=== PATIENT | male | born 1955 | race Caucasian/White ===

== ENCOUNTER 2016-11-01 15:23 | Emergency (ER) | payer MEDICARE, OTHER ==
[~2016-11-01] VITALS: Ht 182.9 cm; Wt 125.5 kg
[~2016-11-01 15:23] MED LIST: ACET1TAB49 PO
[2016-11-01 15:44] VITALS: Ht 182.9 cm; Wt 125.5 kg
--- NOTE | 2016-11-01 18:48 | ERA ---
ER Documentation Chief Complaint Date/Time DATE: 11/01/16 TIME: 18:48 Chief Complaint SENT BY PMD FOR PALPITATIONS.DENIES PAIN.DENIES CARDIAC HISTORY HPI The patient is a 60-year-old male, presenting to the ER because of palpitation intermittently for the last 2 weeks after his left him. He denies any palpitation now; he denies similar symptoms previously, denies suicidal ideation , homicidal ideation, auditory visual hallucination. Denies any chest pain, dyspnea, abdominal pain, vomiting, dysuria, diarrhea. He does not smoke nor drink Past medical history: Diabetes mellitus Past surgical history: Hemorrhoidectomy ROS All systems reviewed and are negative except as per history of present illness. Medications Home Meds Reported Medications Atorvastatin Calcium* (Atorvastatin Calcium*) 20 Mg Tablet, 20 MG PO QHS, #30 TAB 11/01/16 Aspirin* (Aspirin* EC) 81 Mg Tablet.dr, 81 MG PO DAILY, TAB 11/01/16 Metformin* (Glucophage*) 500 Mg Tab, 500 MG PO WITH BREAKFAST DINNE, #30 TAB 11/01/16 Promethazine Hcl* (Phenergan* Liq) 6.25 Mg/5 Ml Syrup, 6.25 MG PO QHS, ML 11/01/16 Glipizide* (Glipizide*) 5 Mg Tablet, 5 MG PO DAILY, TAB 11/01/16 Discontinued Reported Medications Acetaminophen/Phenyltolx Cit (Asa Free Analgesic Tablet) 1 Tab Tablet, 81 MG PO DAILY 07/21/11 Allergies Allergies: Coded Allergies: No Known Allergy (Verified , 11/01/16) PMhx/Soc History of Surgery: No Anesthesia Reaction: No Hx Neurological Disorder: Yes (CEREBRAL PALSY) Hx Respiratory Disorders: No Hx Cardiac Disorders: No Hx Psychiatric Problems: No Hx Miscellaneous Medical Probl: Yes (MENTALLY CHALLENGE) Hx Alcohol Use: No Hx Substance Use: No Hx Tobacco Use: No Physical Exam Vitals Vital Signs Date Time Temp Pulse Resp B/P Pulse Ox O2 Delivery O2 Flow Rate FiO2 11/01/16 19:04 Nasal Cannula 11/01/16 18:50 98.2 79 18 137/88 97 Room Air 11/01/16 15:44 98.5 98 18 144/81 98 Physical Exam Const: No acute distress. Head: Atraumatic. Eyes: Normal Conjunctiva. ENT: Normal External Ears, Nose and Mouth. Neck: Full range of motion. No meningismus. Resp: Clear to auscultation bilaterally. Cardio: Regular rate and rhythm, no murmurs. Abd: Soft, non distended, normal bowel sounds, non tender. Skin: No petechiae or rashes. Back: No midline or flank tenderness. Ext: No cyanosis, or edema. Neur: Awake and alert. No focal deficit Psych: Normal Mood and Affect. Result Diagram: 11/01/16185711/01/161857 Results 24 hrs Laboratory Tests Test 11/01/16 18:58 White Blood Count 7.910^3/ul Red Blood Count 5.1610^6/ul Hemoglobin 16.1g/dl Hematocrit 46.9% Mean Corpuscular Volume 90.9fl Mean Corpuscular Hemoglobin 31.2pg Mean Corpuscular Hemoglobin Concent 34.3g/dl Red Cell Distribution Width 12.5% Platelet Count 25523^3/UL Mean Platelet Volume 9.7fl Neutrophils % 54.6% Lymphocytes % 34.6% Monocytes % 7.7% Eosinophils % 2.4% Basophils % 0.3% Nucleated Red Blood Cells % 0.0/100WBC Neutrophils # 4.310^3/ul Lymphocytes # 2.710^3/ul Monocytes # 0.610^3/ul Eosinophils # 0.210^3/ul Basophils # 0.010^3/ul Nucleated Red Blood Cells # 0.010^3/ul Prothrombin Time 13.2Sec Prothrombin Time Ratio 1.0 INR International Normalized Ratio 1.00 Activated Partial Thromboplast Time 28.0Sec Sodium Level 141mmol/L Potassium Level 4.3mmol/L Chloride Level 100mmol/L Carbon Dioxide Level 29mmol/L Anion Gap 16 Blood Urea Nitrogen 12mg/dl Creatinine 0.78mg/dl Glucose Level 129mg/dl Calcium Level 10.4mg/dl [facility] [id number] Radiology Main Line: [phone] DIAGNOSTIC IMAGING REPORT Patient: GIUSEPPE ECHOLS : 1955 Age: 60 Sex: M MR #: [id number] DOS: 11/01/161852 Ordering MD: GIUSEPPE ARITA MD Location: E/R Room/Bed: PROCEDURE: XR Chest. CLINICAL INDICATION: Chest Pain. TECHNIQUE: Single frontal view of the chest was obtained COMPARISON: None FINDINGS: The heart is enlarged with fullness in the superior mediastinum. This is likely exaggerated by the portable AP nature of the film. The lungs are clear. There is no pleural effusion or pneumothorax. IMPRESSION: 1. The heart is enlarged with fullness in the superior mediastinum. This is likely somewhat exaggerated by the portable AP nature of the film. 2. Otherwise, no significant abnormalities are identified. RPTAT:AAJJ Physician Ngoc Date Time Electronically viewed and signed by Danie Cook Physician on 11/01/2016 20: 01 MC/ CC: GIUSEPPE ARITA MD MEDICAL MAKING DECISION: The patient is a 60-year-old male, presenting with acute palpitation, most likely due to acute stress. The differential diagnoses considered include but are not limited to acute coronary syndrome, acute myocardial infarction, pericarditis, pulmonary embolism, aortic dissection, pneumonia, pleural effusion, pneumothorax, GERD, chest wall pain. Departure Diagnosis: Primary Impression: Palpitations Condition: Good Comments I discussed the findings with the patient. I advised the patient to follow-up with the primary physician in about 1-2 days, sooner if needed and return if any concern. The patient's blood pressure was elevated (>120/80) but appears stable without evidence of hypertension emergency or urgency. The patient was counseled about the risks of hypertension and urged to pursue outpatient monitoring and therapy within a week with their primary care physician. GIUSEPPE ARITA MD Nov 01, 2016 18:48
[2016-11-01 18:50] VITALS: TEMP 98.2
[2016-11-01 19:11] LABS: ADD SCAN DIFF NO; BASOPHILS % 0.3 % (0.0-2.0); EOSINOPHILS # 0.2 10^3/ul (0.0-0.5); EOSINOPHILS % 2.4 % (0.0-7.0); HEMATOCRIT 46.9 % (42.0-52.0); HEMOGLOBIN 16.1 g/dl (14.0-18.0); LYMPHOCYTES # 2.7 10^3/ul (0.8-2.9); LYMPHOCYTES % 34.6 % (15.0-51.0); MEAN CORPUSCULAR HEMOGLOBIN 31.2 pg (29.0-33.0); MEAN CORPUSCULAR HGB CONC 34.3 g/dl (32.0-37.0); MEAN CORPUSCULAR VOLUME 90.9 fl (82.0-101.0); MEAN PLATELET VOLUME 9.7 fl (7.4-10.4); MONOCYTE # 0.6 10^3/ul (0.3-0.9); MONOCYTES % 7.7 % (0.0-11.0); NEUTROPHIL # 4.3 10^3/ul (1.6-7.5); NEUTROPHILS % 54.6 % (39.0-77.0); PLATELET COUNT 221 10^3/UL (140-415); RED BLOOD COUNT 5.16 10^6/ul (4.70-6.10); RED CELL DISTRIBUTION WIDTH 12.5 % (11.5-14.5); WHITE BLOOD COUNT 7.9 10^3/ul (4.8-10.8)
[2016-11-01] MEDS ORDERED: GLIP5TAB13 PO (19:13)
[2016-11-01] MEDS ORDERED: PROM6.25 PO (19:15)
[2016-11-01] MEDS ORDERED: METF500T4 PO (19:18)
[2016-11-01] MEDS ORDERED: ASPI-664 PO (19:19)
[2016-11-01] MEDS ORDERED: ATOR20TA38 PO (19:20)
[2016-11-01 19:22] LABS: POTASSIUM 4.3 mmol/L (3.5-5.1); PROTIME 13.2 Sec (12.2-14.2)
[2016-11-01 19:24] LABS: CREATININE 0.78 mg/dl (0.61-1.24)
[2016-11-01 19:25] LABS: CALCIUM 10.4 mg/dl (8.4-10.2)
--- NOTE | 2016-11-01 20:02 | RADRPT ---
PROCEDURE: XR Chest. CLINICAL INDICATION: Chest Pain. TECHNIQUE: Single frontal view of the chest was obtained COMPARISON: None FINDINGS: The heart is enlarged with fullness in the superior mediastinum. This is likely exaggerated by the portable AP nature of the film. The lungs are clear. There is no pleural effusion or pneumothorax. IMPRESSION: 1. The heart is enlarged with fullness in the superior mediastinum. This is likely somewhat exagge rated by the portable AP nature of the film. 2. Otherwise, no significant abnormalities are identified. RPTAT:AAJJ Physician Ngoc Date Time Electronically viewed and signed by Danie Cook Physician on 11/01/2016 20:01 LION/
[2016-11-01 20:18] VITALS: BP 139/48; PULSE 80; RESP 18
== END 2016-11-01 20:18 | disposition home or self-care (01) ==
LOC: E/R 15:23
DX: R00.2 Palpitations (principal); E11.9 Type 2 diabetes mellitus without complications; R07.9 Chest pain, unspecified; Z79.84 Long term (current) use of oral hypoglycemic drugs; Z79.82 Long term (current) use of aspirin
CPT/HCPCS: 36415; 71010; 80048; 85025; 85610; 85730; 93005

== ENCOUNTER 2016-11-13 12:32 | Observation (INO) | payer MEDICARE, OTHER ==
[~2016-11-13] VITALS: Ht 185.4 cm; Wt 122.0 kg
[~2016-11-13 12:32] MED LIST changes: -ACET1TAB49 PO; +ASPI-664 PO; +ATOR20TA38 PO; +GLIP5TAB13 PO; +METF500T4 PO; +PROM6.25 PO
[2016-11-13] MEDS ORDERED: ASPIRIN 81 MG TAB PO STA (12:50)
[2016-11-13] MEDS ORDERED: NITROGLYCERIN 2% 1 GM OINT PKT TD STA (12:50)
[2016-11-13] MEDS ORDERED: NITROGLYCERIN (SL) 0.4 MG TAB SL PRN ×2 (13:00→19:30)
[2016-11-13 13:40] LABS: ADD SCAN DIFF NO
[2016-11-13 13:43] LABS: BASOPHILS % 0.3 % (0.0-2.0); EOSINOPHILS # 0.2 10^3/ul (0.0-0.5); EOSINOPHILS % 2.8 % (0.0-7.0); HEMATOCRIT 42.4 % (42.0-52.0); HEMOGLOBIN 14.6 g/dl (14.0-18.0); LYMPHOCYTES % 33.4 % (15.0-51.0); MEAN CORPUSCULAR HEMOGLOBIN 30.9 pg (29.0-33.0); MEAN CORPUSCULAR HGB CONC 34.4 g/dl (32.0-37.0); MEAN CORPUSCULAR VOLUME 89.6 fl (82.0-101.0); MEAN PLATELET VOLUME 10.2 fl (7.4-10.4); MONOCYTE # 0.6 10^3/ul (0.3-0.9); MONOCYTES % 9.8 % (0.0-11.0); NEUTROPHIL # 3.2 10^3/ul (1.6-7.5); NEUTROPHILS % 53.5 % (39.0-77.0); PLATELET COUNT 203 10^3/UL (140-415); RED BLOOD COUNT 4.73 10^6/ul (4.70-6.10); RED CELL DISTRIBUTION WIDTH 12.4 % (11.5-14.5); WHITE BLOOD COUNT 6.1 10^3/ul (4.8-10.8)
[2016-11-13 13:53] LABS: CHLORIDE 103 mmol/L (97-110)
[2016-11-13 13:54] LABS: POTASSIUM 3.9 mmol/L (3.5-5.1); SODIUM 143 mmol/L (135-144)
[2016-11-13 13:55] LABS: INR 1.08; PARTIAL THROMBOPLASTIN TIME 28.6 Sec (25.0-35.0); PT RATIO 1.1
[2016-11-13 13:57] LABS: ANION GAP 15 (8-16); BLOOD UREA NITROGEN 14 mg/dl (7-20); CALCIUM 9.8 mg/dl (8.4-10.2); CARBON DIOXIDE 29 mmol/L (21-31); GLUCOSE 109 mg/dl (70-220)
[2016-11-13 14:33] LABS: TROPONIN-I < 0.012 ng/ml (0.00-0.12)
--- NOTE | 2016-11-13 14:33 | RADRPT ---
PROCEDURE: XR Chest. CLINICAL INDICATION: Chest pain. TECHNIQUE: Single frontal chest x-ray. COMPARISON: 11/01/2016 FINDINGS: The lungs are clear. No focal opacification is seen. The cardiomediastinal silhouette is unremarka ble. The osseous structures are unremarkable. IMPRESSION: 1. There is no acute cardiopulmonary process. 2. Stable appearances over time. RPTAT: HMJB .Lucian Mayorga MD, MD Date Time Electronically viewed and signed by .Lucian Mayorga MD, on 11/13/2016 14:33 .B/
[2016-11-13] MEDS ORDERED: ONDANSETRON 4 MG INJ IV PRN ×2 (16:00→19:30)
[2016-11-13] MEDS ORDERED: ACETAMINOPHEN 325 MG TAB PO PRN ×2 (16:00→19:30)
--- NOTE | 2016-11-13 16:33 | ERA ---
ER Documentation Chief Complaint Date/Time DATE: 11/13/16 TIME: 16:29 Chief Complaint chest pain radiating to left shoulder x 3 days HPI Patient is a 60-year-old male with hypertension and diabetes who presents with chest pain. The symptoms started 2 days ago. The chest pain is left-sided. It comes and goes. It lasts 2 hours when it comes. He has had no treatment as of yet. There is no radiation. He was seen on November 01 for palpitations but was discharged that day. Upon review of old medical records this is the patient 's fifth visit to the ER since 2006. His primary doctor is Dr. Christal Sanders. ROS All systems reviewed and are negative except as per history of present illness. Medications Home Meds Reported Medications Atorvastatin Calcium* (Atorvastatin Calcium*) 20 Mg Tablet, 20 MG PO QHS, #30 TAB 11/01/16 Aspirin* (Aspirin* EC) 81 Mg Tablet.dr, 81 MG PO DAILY, TAB 11/01/16 Metformin* (Glucophage*) 500 Mg Tab, 500 MG PO WITH BREAKFAST DINNE, #30 TAB 11/01/16 Promethazine Hcl* (Phenergan* Liq) 6.25 Mg/5 Ml Syrup, 6.25 MG PO QHS, ML 11/01/16 Glipizide* (Glipizide*) 5 Mg Tablet, 5 MG PO DAILY, TAB 11/01/16 Allergies Allergies: Coded Allergies: No Known Allergy (Verified , 11/01/16) PMhx/Soc History of Surgery: Yes Anesthesia Reaction: No Hx Neurological Disorder: Yes (CEREBRAL PALSY) Hx Respiratory Disorders: No Hx Cardiac Disorders: No Hx Psychiatric Problems: No Hx Miscellaneous Medical Probl: Yes (MENTALLY CHALLENGE, DM) Hx Alcohol Use: No Hx Substance Use: No Hx Tobacco Use: No Smoking Status: Never smoker FmHx Family History: coronary disease Physical Exam Vitals Vital Signs Date Time Temp Pulse Resp B/P Pulse Ox O2 Delivery O2 Flow Rate FiO2 11/13/16 16:55 79 17 110/74 98 Room Air 11/13/16 14:43 87 17 114/83 99 Room Air 11/13/16 13:05 Nasal Cannula 2 11/13/16 12:36 98.2 89 18 129/72 98 Physical Exam Const: No acute distress Head: Atraumatic Eyes: Normal Conjunctiva ENT: Normal External Ears, Nose and Mouth. Neck: Full range of motion..~ No meningismus. Resp: Clear to auscultation bilaterally Cardio: Regular rate and rhythm, no murmurs Abd: Soft, non tender, non distended. Normal bowel sounds Skin: No petechiae or rashes Back: No midline or flank tenderness Ext: No cyanosis, or edema Neur: Awake and alert Psych: Normal Mood and Affect Result Diagram: 11/13/16 1324 11/13/16 1324 Results 24 hrs Laboratory Tests Test 11/13/16 13:24 White Blood Count 6.110^3/ul Red Blood Count 4.7310^6/ul Hemoglobin 14.6g/dl Hematocrit 42.4% Mean Corpuscular Volume 89.6fl Mean Corpuscular Hemoglobin 30.9pg Mean Corpuscular Hemoglobin Concent 34.4g/dl Red Cell Distribution Width 12.4% Platelet Count 48506^3/UL Mean Platelet Volume 10.2fl Neutrophils % 53.5% Lymphocytes % 33.4% Monocytes % 9.8% Eosinophils % 2.8% Basophils % 0.3% Nucleated Red Blood Cells % 0.0/100WBC Neutrophils # 3.210^3/ul Lymphocytes # 2.010^3/ul Monocytes # 0.610^3/ul Eosinophils # 0.210^3/ul Basophils # 0.010^3/ul Nucleated Red Blood Cells # 0.010^3/ul Prothrombin Time 14.0Sec Prothrombin Time Ratio 1.1 INR International Normalized Ratio 1.08 Activated Partial Thromboplast Time 28.6Sec Sodium Level 143mmol/L Potassium Level 3.9mmol/L Chloride Level 103mmol/L Carbon Dioxide Level 29mmol/L Anion Gap 15 Blood Urea Nitrogen 14mg/dl Creatinine 0.80mg/dl Glucose Level 109mg/dl Calcium Level 9.8mg/dl Troponin I < 0.012ng/ml Current Medications Medications (Trade) Dose Ordered Sig/Lashay Route PRN Reason Start Time Stop Time Status Last Admin Dose Admin Aspirin (Aspirin) 162 mg ONCE STAT PO 11/13/16 12:50 11/13/16 12:51 DC 11/13/16 13:37 Nitroglycerin (Nitroglycerin 2% Oint) 1 inch ONCE STAT TD 11/13/16 12:50 11/13/16 12:51 DC 11/13/16 13:38 Nitroglycerin (Nitroglycerin (Sl Tab) 0.4 Mg) 1 tab Q5M UP TO 3 DOSES PRN SL CHEST PAIN 11/13/16 13:00 Ondansetron HCl (Zofran Inj) 4 mg ER BRIDGE PRN IV NAUSEA AND/OR VOMITING 11/13/16 16:00 11/14/16 15:59 Acetaminophen (Tylenol Tab) 650 mg ER BRIDGE PRN PO MILD PAIN/FEVER 11/13/16 16:00 11/14/16 15:59 Procedures/MDM EKG read by me: Rate/Rhythm: Regular rate and rhythm at a rate of 88 Intervals: Normal Impression: No evidence of ischemia or arrhythmia Chest x-ray negative per radiology. Patient is a 60-year-old male with hypertension and diabetes who presents with chest pain. This chest pain is concerning for acute coronary syndrome. At this point I doubt pneumonia, pneumothorax, pulmonary embolism, or aortic dissection. The patient will need admission to a telemetry bed for further evaluation for the cause of his chest pain. Dr. Christal Sanders is the patient's primary doctor and I spoke with Dr. Tejada who is covering for her today. The patient will be admitted to a telemetry bed. Patient was given aspirin nitroglycerin empirically. Departure Diagnosis: Primary Impression: Chest pain Qualified Code: R07.9 - Chest pain, unspecified type Condition: MAI Mitchell MD Nov 13, 2016 16:33
[2016-11-13 18:18] VITALS: PULSE 74
[2016-11-13 18:31] VITALS: Ht 185.4 cm; Wt 122.0 kg
[2016-11-13 18:36] VITALS: BP 111/67; PULSE 83; RESP 18
[2016-11-13 19:28] VITALS: BP 116/60; RESP 18
[2016-11-13] MEDS ORDERED: ZOLPIDEM 5 MG TAB PO PRN (19:30)
[2016-11-13] MEDS ORDERED: PROMETHAZINE (1.25 MG/ML) 5 ML CUP PO PRN (19:30)
[2016-11-13 19:35] LABS: CREATINE KINASE 642 IU/L (23-200)
[2016-11-13 19:46] LABS: CK-MB 7.62 ng/ml (0.0-2.4)
[2016-11-13 19:50] LABS: TROPONIN-I < 0.012 ng/ml (0.00-0.12)
[2016-11-13 20:06] VITALS: PULSE 88
[2016-11-13] MEDS: ATORVASTATIN 20 MG TAB PO SCH (20:15)
[2016-11-14] VITALS (12 sets, daily range): BP systolic 95–142; BP diastolic 55–80; PULSE 56–101; RESP 18
[2016-11-14 01:17] LABS: CREATINE KINASE 516 IU/L (23-200)
[2016-11-14 01:34] LABS: CK-MB 6.27 ng/ml (0.0-2.4); TROPONIN-I < 0.012 ng/ml (0.00-0.12)
[2016-11-14] MEDS ORDERED: glipiZIDE 5 MG TAB PO SCH (07:25)
[2016-11-14 07:34] LABS: ADD SCAN DIFF NO
[2016-11-14 07:37] LABS: BASOPHILS % 0.5 % (0.0-2.0); EOSINOPHILS # 0.2 10^3/ul (0.0-0.5); EOSINOPHILS % 3.9 % (0.0-7.0); HEMATOCRIT 41.2 % (42.0-52.0); HEMOGLOBIN 13.8 g/dl (14.0-18.0); LYMPHOCYTES # 1.4 10^3/ul (0.8-2.9); LYMPHOCYTES % 31.7 % (15.0-51.0); MEAN CORPUSCULAR HEMOGLOBIN 30.5 pg (29.0-33.0); MEAN CORPUSCULAR HGB CONC 33.5 g/dl (32.0-37.0); MEAN CORPUSCULAR VOLUME 90.9 fl (82.0-101.0); MEAN PLATELET VOLUME 10.3 fl (7.4-10.4); MONOCYTE # 0.4 10^3/ul (0.3-0.9); MONOCYTES % 9.3 % (0.0-11.0); NEUTROPHIL # 2.4 10^3/ul (1.6-7.5); NEUTROPHILS % 54.4 % (39.0-77.0); PLATELET COUNT 165 10^3/UL (140-415); RED BLOOD COUNT 4.53 10^6/ul (4.70-6.10); WHITE BLOOD COUNT 4.3 10^3/ul (4.8-10.8)
[2016-11-14] MEDS: INSULIN ASPART [NOVOLOG] 3 ML PEN SC SCH ×4 (07:55→21:00)
[2016-11-14] MEDS: metFORMIN 500 MG TAB PO SCH ×2 (07:56→17:45)
[2016-11-14] MEDS ORDERED: GLUCOSE GEL 15 GRAM TUBE PO PRN ×2 (08:00)
[2016-11-14] MEDS ORDERED: GLUCOSE GEL 15 GRAM TUBE BUCCAL PRN (08:00)
[2016-11-14] MEDS ORDERED: DEXTROSE 50% 50 ML SYRINGE IV PRN ×2 (08:00)
[2016-11-14] MEDS ORDERED: GLUCAGON 1 MG INJ IM PRN (08:00)
[2016-11-14 08:12] LABS: ALBUMIN 3.7 g/dl (3.3-4.9); ALBUMIN/GLOBULIN RATIO 1.27; BILIRUBIN,INDIRECT 0.6 mg/dl (0-1.1); BILIRUBIN,TOTAL 0.6 mg/dl (0.2-1.3); CALCIUM 9.6 mg/dl (8.4-10.2); CREATININE 0.71 mg/dl (0.61-1.24); TOTAL PROTEIN 6.6 g/dl (6.1-8.1)
[2016-11-14] MEDS: ASPIRIN 81 MG TAB PO SCH (09:43)
[2016-11-14] MEDS ORDERED: KETOROLAC 30 MG INJ IV STA (18:20)
[2016-11-14] MEDS: ATORVASTATIN 20 MG TAB PO SCH (21:06)
[2016-11-14] MEDS: ALPRAZOLAM 0.5 MG TAB PO SCH (21:06)
--- NOTE | 2016-11-14 22:36 | HP ---
DATE OF ADMISSION: 11/13/2016 CHIEF COMPLAINT: Chest pain. HISTORY OF PRESENT ILLNESS: This 60-year-old male with mild mental developmental delay, m ental retardation has been going through a lot of stress with his newly and and her mot her. The patient has been having intermittent shortness of breath and palpitations, but presents in the emergency room with acute onset of chest pain on and off for 2 days prior to admission. He den ied any shortness of breath, diaphoresis, nausea, or vomiting. He does have mild unassociated palpi tations. The pain does radiate to the left shoulder. PAST MEDICAL HISTORY: 1. Diabetes mellitus. 2. Cerebral palsy. 3. Mild mental retardation. 4. Chronic myositis. ALLERGIES: NKDA. MEDICATIONS: 1. Metformin 500 mg p.o. every day. 2. Glipizide 5 mg p.o. every day. 3. Atorvastatin 20 mg p.o. at bedtime. 4. Aspirin 81 mg p.o. every day. SOCIAL HISTORY: The patient does not smoke, does not drink alcohol. He just got to another mentally challenged patient about a month ago, but the patient's mom just took his away and e patient has been having severe distress since then. He also has lost his main social support gabrielle use the [id number] also insisted that he fires the attendant who has been taking care of him. Ilan shahid did not want him to go to the [facility] where he was getting guidance. FAMILY HISTORY: Notable for heart disease. PHYSICAL EXAMINATION: GENERAL: Well-developed, well-nourished male complaining of left-sided chest pain. VITAL SIGNS: Temperature 98.6, blood pressure 134/80, pulse of 104, respiration rate 18, O2 saturat ion 96%. HEENT: Pupils equally round, reactive to light. Oropharynx clear. LUNGS: Clear to auscultation. CARDIAC: Regular rate and rhythm. Normal S1, S2. There is marked left parasternal tenderness jc g the costochondral joints. ABDOMEN: Active bowel sounds, soft, nondistended, nontender. EXTREMITIES: No clubbing, cyanosis, or edema. LABORATORY DATA: WBC 4.3, hemoglobin 13.8, hematocrit 41.2, platelet count is 165,000. Sodium 141, potassium 4.0, chloride 109, carbon dioxide 25, BUN 14, creatinine 0.7. The patient's serial tropo nins have been less than 0.012. His creatinine kinase has been elevated between 500 and 650. His C PK-MB has been elevated at 6.27 and 7.62, but not in the range indicative of acute myocardial infarc tion. The patient's chest x-ray shows no acute pulmonary process. EKG shows normal sinus rhythm, n o acute ST or T-wave changes. IMPRESSION: 1. Chest pain. Most likely due to costochondritis from acute stress and hyperventilation. Will st art patient on anti-inflammatory. Check a 2D echo since his CPK enzymes have been consistently elev ated. Although with a history of myositis, this unlikely to be caused by myocardial infarction. 2. Acute stress reaction. The patient was started on Paxil as an outpatient, but I am not sure radha t he filled his prescription. I will start him on an SSRI and some Xanax to help stabilize his tach ycardia as well as depression. Dictated By: APOLINAR SNYDER MD DP/NTS Conf#: [id number] DID#: [id number] CC: MYRA RICHARD MD;*EndCC*
[2016-11-15] VITALS (10 sets, daily range): BP systolic 109–131; BP diastolic 67–81; PULSE 59–77; RESP 17–20
[2016-11-15] MEDS ORDERED: ACCU-CHEK XX SCH (02:00)
[2016-11-15] MEDS: ALPRAZOLAM 0.5 MG TAB PO SCH (08:21)
[2016-11-15] MEDS: metFORMIN 500 MG TAB PO SCH ×2 (08:21→17:32)
[2016-11-15] MEDS: ASPIRIN 81 MG TAB PO SCH (08:21)
[2016-11-15] MEDS: INSULIN ASPART [NOVOLOG] 3 ML PEN SC SCH ×3 (08:27→17:34)
[2016-11-15] MEDS ORDERED: MELOXICAM 15 MG TAB PO SCH (09:00)
[2016-11-15] MEDS ORDERED: FLUOXETINE 20 MG CAP PO SCH (09:00)
--- NOTE | 2016-11-16 04:07 | DS ---
DATE OF ADMISSION: 11/13/2016 DATE OF DISCHARGE: 11/15/2016 DISCHARGE DIAGNOSES: 1. Chest pain. 2. Costochondritis. 3. Reactive depression. 4. Cerebral palsy. 5. Mental retardation. 6. Idiopathic myositis. HOSPITAL COURSE: This 60-year-old male who is undergoing relationship difficulty with his newly was admitted for chest pain on 11/13/2016. Although patient's EKG was normal and his troponins show persistently low levels at less than 0.01, his CPK was elevated at 642 and 516 s erially with the MB fraction at 7.62 and 6.27. The patient does have a history of myositis to expla in his elevated CPK and once we started him on Meloxicam, his anterior chest wall pain resolved. Th e patient also complains of severe depression due to his relationship problems, but on the day of jessie, he felt much better partially due to the Fluoxetine that was started but also mostly due to the fact that his estranged called him and talked to him. The patient had a 2D echocardiogram done in the hospital, the result of which is pending at this time. The patient was noted by all the nursing staff to be severely depressed on admission. We had a geriatric social worker consult who referred h im to outpatient mental health clinic for followup. DISPOSITION: The patient is discharged to home in good condition. DISCHARGE MEDICATIONS: Include: 1. Metformin. 2. Paroxetine. 3. Glipizide. 4. Aspirin. 5. Atorvastatin. FOLLOWUP: The patient will follow up with Dr. Apolinar Sanders within 1 week. He also will attend the [facility] for psychotherapy counseling. Dictated By: APOLINAR SANDERS MD DP/ANABELLA Conf#: [id number] DID#: [id number]
--- NOTE | 2016-11-16 14:25 | RADRPT ---
Echocardiogram Report Patient Name: EL ECHOLS Gender: Male Date: 1955 Study Date: 15-Nov-2016 Concrete Pavement Installer: Lance Bonds [facility] Location: [id number] Ref. Physician: APOLINAR SNYDER Quality: Adequate Procedures: Transthoracic echocardiogram with complete 2D, M-Mode, and doppler examination. Indications: elevated ckmb. Chest Pain. 2D/M Mode Doppler Measurement Value Normal Ranges Measurement Value Normal Ranges LVIDd 2D 6.0 3.5 - 5.6 cm AV Peak Dev 1.3 m/sec LVIDs 2D 3.4 2.1 - 4.1 cm AV Peak PG 6.8 mmHg LVPWd 2D 0.9 0.6 - 1.1 cm AI Peak PG 53.3 mmHg IVSd 2D 1.0 0.6 - 1.1 cm AI Peak Dev 3.6 m/sec AoR Diam 2D 3.5 2.0 - 3.7 cm AI PHT 526.3 msec EDV 2D 182.4 cm3 LVOT Peak Dev 0.8 m/sec ESV 2D 40.2 cm3 LVOT Peak PG 2.8 mmHg LA Dimen 2D 3.8 2.3 - 4.0 cm MV E Peak Dev 0.6 m/sec MV A Peak Dev 0.6 m/sec MV E/A 1.1 MV Decel Time 163 msec MV Decel Barrow 4 MV E/A 1.1 TR Peak Dev 2.4 m/sec TR Peak PG 23.5 mmHg RVSP 27.0 mmHg Findings Left Ventricle: Normal left ventricular cavity size. Normal left ventricular wall thickness. Mild left ventricular systolic dysfunction. Ejection fraction is visually estimated at 45 %. Right Ventricle: Normal right ventricular size. Normal right ventricular systolic function. Left Atrium: The left atrium is normal in size. Right Atrium: The right atrium is normal in size. Mitral Valve: Normal appearance and function of the mitral valve with trace physiologic regurgitation. Aortic Valve: No hemodynamically significant aortic stenosis by doppler. Aortic cusps appear mildly calcified. Mild aortic valve regurgitation. Tricuspid Valve: Normal appearance and function of the tricuspid valve with trace physiologic regurgitation. Estimated peak PA systolic pressure 27 mmHg. Pulmonic Valve: Pulmonic valve not well visualized. Pericardium: Normal pericardium with no significant pericardial effusion. Aorta: Normal aortic root. IVC: Normal size and normal respiratory collapse consistent with normal right atrial pressure. Conclusions 1.Normal left ventricular cavity size. Normal left ventricular wall thickness. Mild left ventricular systolic dysfunction. Ejection fraction is visually estimated at 45 %. 2.Normal right ventricular size. Normal right ventricular systolic function. 3.The left atrium is normal in size. 4.The right atrium is normal in size. 5.No hemodynamically significant aortic stenosis by doppler. Aortic cusps appear mildly calcified. Mild aortic valve regurgitation. 6.No significant valvular stenosis or regurgitation seen of remaining visualized valves. 7.Normal pericardium with no significant pericardial effusion. Electronically Signed By: El Fajardo 16-Nov-2016 14:24:14 -0700 Patient Name: EL ECHOLS Study Date: 15-Nov-2016 [id number]
== END 2016-11-15 20:30 | disposition home or self-care (01) ==
LOC: E/R 12:32 → TEL 15:40
PROVIDERS: ADMIT Internal Medicine; ATTEND Internal Medicine
DX: M94.0 Chondrocostal junction syndrome [Tietze] (principal); F32.9 Major depressive disorder, single episode, unspecified; G80.9 Cerebral palsy, unspecified; F79 Unspecified intellectual disabilities; M60.80 Other myositis, unspecified site
CPT/HCPCS: 36415; 71010; 80048; 80053; 82550; 82553; 82962; 84484; 85025; 85610; 85730; 93005; 93306; 96372; 96374; 99285; G0378; J1815; J1885

== ENCOUNTER 2018-11-07 13:31 | Emergency (ER) | payer MEDICARE, OTHER ==
[~2018-11-07] VITALS: Wt 100.0 kg
[~2018-11-07 13:31] MED LIST changes: -ASPI-664 PO; +ASPI-817 PO; +METF-849 PO; -METF500T4 PO; -PROM6.25 PO; +PROM6.256 PO
[2018-11-07] MEDS ORDERED: ASPIRIN 325 MG TAB PO STA (13:33)
--- NOTE | 2018-11-07 13:38 | ERD ---
ER Documentation Chief Complaint Chief Complaint palpitations and chest pain and possible syncope during argument. HPI 62-year-old gentleman who has a history of diabetes who presents to the emergency room with palpitations, chest pain, possible syncope during verbal altercation. The patient appeared to have been an argument with someone around his home. He states that 911 was called by his friend because the patient started to describe palpitations and may have passed out. He did describe some mild sharp chest pain was nonpleuritic and is now alleviated. Patient denies cardiac history. No fevers or chills. Otherwise the patient has no complaints currently. ROS All systems reviewed and are negative except as per history of present illness. Medications Home Meds Reported Medications Paroxetine Hcl* (Paroxetine*) 30 Mg Tablet, 30 MG PO HS, TAB 11/07/18 Sitagliptin* (Januvia*) 100 Mg Tablet, 100 MG PO DAILY, #30 TAB 11/07/18 Metformin Hcl* (Metformin Hcl*) 500 Mg Tablet, 1000 MG PO WITH BREAKFAST DINNE, #60 TAB 11/07/18 Glimepiride* (Glimepiride*) 4 Mg Tablet, 4 MG PO WITH BREAKFAST DINNE, TAB 11/07/18 Atorvastatin* (Atorvastatin*) 40 Mg Tablet, 40 MG PO QHS, #30 TAB 11/07/18 Aspirin* (Aspirin* EC) 81 Mg Tablet.dr, 81 MG PO DAILY, TAB 11/07/18 Discontinued Reported Medications Atorvastatin Calcium* (Atorvastatin Calcium*) 20 Mg Tablet, 20 MG PO QHS, #30 TAB 11/01/16 Aspirin* (Aspirin* EC) 81 Mg Tablet.dr, 81 MG PO DAILY, TAB 11/01/16 Metformin* (Glucophage*) 500 Mg Tab, 500 MG PO WITH BREAKFAST DINNE, #30 TAB 11/01/16 Promethazine Hcl* (Phenergan* Liq) 6.25 Mg/5 Ml Syrup, 6.25 MG PO QHS, ML 11/01/16 Glipizide* (Glipizide*) 5 Mg Tablet, 5 MG PO DAILY, TAB 11/01/16 Allergies Allergies: Coded Allergies: No Known Allergy (Verified , 11/07/18) PMhx/Soc History of Surgery: No Anesthesia Reaction: No Hx Neurological Disorder: Yes (Cerebral palsy) Hx Respiratory Disorders: No Hx Cardiac Disorders: No Hx Psychiatric Problems: No Hx Alcohol Use: No Hx Substance Use: No Hx Tobacco Use: No FmHx Family History: No diabetes Physical Exam Vitals Vital Signs Date Temp Pulse Resp B/P (MAP) Pulse Ox O2 O2 Flow FiO2 Time Delivery Rate 11/07/18 97 16 133/88 100 Room Air 15:20 (103) 11/07/18 97.8 89 18 139/78 99 14:05 (98) Physical Exam General: Well developed, well nourished, no acute distress Head: Normocephalic, atraumatic. Eyes: Pupils equally reactive, EOM intact ENT: Moist mucous membranes Neck: Supple, no lymphadenopathy Respiratory: Lungs clear bilaterally, no distress Cardiovascular: RRR, no murmurs, rubs, or gallops Abdominal: Soft, non-tender, non-distended, no peritoneal signs : Deferred MSK: No edema, no unilateral swelling, 5/5 strength Neurologic: Alert and oriented, moving all extremities, normal speech, no focal weakness, no cerebellar signs Skin: No rash Psych: Normal mood Result Diagram: 11/07/18 1404 11/07/18 1404 Results 24 hrs Laboratory Tests Test 11/07/18 13:34 11/07/18 14:04 11/07/18 14:05 11/07/18 15:26 Blood Gas Blood venous Specimen Source Arterial Blood 11/07/2018 2:06:2 Date Drawn 4 PM Arterial Blood VENOUS LINE Gas Puncture Site Scar Test N/A Venous Blood pH 7.376 Venous Blood 48.4 mmHG pCO2 (Temp Corrected) Venous Blood pO2 24.2 mmHG (Temp Corrected) Venous Blood 27.7 mmol/L HCO3 Venous Blood 41.3 mmHG Oxygen Saturation Venous Blood 1.7 mmol/L Base Excess Venous Blood 16.0 g/dl Total Hemoglobin Venous Blood 41.0 % Oxyhemoglobin Venous Blood 0.1 % Methemoglobin Blood Gas A-a O2 67.6 mmHg Differential Carboxyhemoglobi 0.6 % n Blood Gas 37.0 C Temperature Blood Gas ROOM AIR Modality FiO2 21.0 % Blood Gas DR MALHOTRA Critical Value Read Back Blood Gas TM Notified Whom Blood Gas 11/07/2018 2:17:1 Notified Time 5 PM White Blood 6.9 10^3/ul Count Red Blood Count 4.94 10^6/ul Hemoglobin 15.0 g/dl Hematocrit 44.1 % Mean Corpuscular 89.3 fl Volume Mean Corpuscular 30.4 pg Hemoglobin Mean Corpuscular 34.0 g/dl Hemoglobin Maris nt Red Cell 12.9 % Distribution Width Platelet Count 204 10^3/UL Mean Platelet 10.2 fl Volume Immature 0.400 % Granulocytes % Neutrophils % 55.8 % Lymphocytes % 33.3 % Monocytes % 7.3 % Eosinophils % 2.6 % Basophils % 0.6 % Nucleated Red 0.0 /100WBC Blood Cells % Immature 0.030 10^3/ul Granulocytes # Neutrophils # 3.8 10^3/ul Lymphocytes # 2.3 10^3/ul Monocytes # 0.5 10^3/ul Eosinophils # 0.2 10^3/ul Basophils # 0.0 10^3/ul Nucleated Red 0.0 10^3/ul Blood Cells # Sodium Level 140 mmol/L Potassium Level 4.8 mmol/L Chloride Level 101 mmol/L Carbon Dioxide 29 mmol/L Level Anion Gap 10 Blood Urea 18 mg/dl Nitrogen Creatinine 0.86 mg/dl Est Glomerular > 60 mL/min Filtrat Rate mL/min Glucose Level 470 mg/dl Calcium Level 10.2 mg/dl Troponin I < 0.012 ng/ml Phosphorus Level 3.9 mg/dl Magnesium Level 1.5 mg/dl Bedside Glucose 326 mg/dL Current Medications Medications Dose Sig/Lashay Start Time Status Last (Trade) Ordered Route PRN Stop Time Admin Dose Reason Admin Aspirin 325 mg ONCE STAT 11/07/18 DC 11/07/18 (Aspirin) PO 13:33 14:55 11/07/18 13:34 Sodium 1,000 ml @ ONCE ONCE 11/07/18 DC 11/07/18 Chloride 1,000 mls/hr IV 14:00 14:15 11/07/18 14:59 Magnesium 100 ml @ ONCE ONCE 11/07/18 11/07/18 Sulfate/ 100 mls/hr IVPB 15:30 15:30 Dextrose 11/07/18 16:29 Insulin 5 unit ONCE ONCE 11/07/18 DC Human SC 15:30 Lispro 11/07/18 15:30 (Humalog) Diagnostic 1 ea 2 HRS AFTER 11/07/18 Test (Pha) HUMALOG ONCE 17:30 (Accu-Chek) XX 11/07/18 17:31 Procedures/MDM EKG, MONITORS, & DIAGNOSTIC IMAGING: EKG: I reviewed and interpreted a 12-lead EKG. Rhythm: Normal sinus rhythm ST Changes: No contiguous ST segment elevations T waves: No contiguous T wave inversions Impression: No evidence of acute cardiac ischemia Repeat EKG: Patient refused Chest x-ray: I reviewed and interpreted a 1 view of the chest Mediastinum: No enlargement Cardiac silhouette: No cardiomegaly Airspace: Clear lung berry bilaterally without evidence of pneumothorax Bones: No evidence of fracture PROCEDURES: None LAB INTERPRETATION: * Hypomagnesemia * Hyperglycemia without evidence of diabetic ketoacidosis * Negative troponin MEDICAL DECISION MAKING: The patient's history, physical exam and clinical presentation is very likely consistent with stress response, palpitations and near syncope versus syncope related to argument. However given the patient's age and risk factors I cannot rule out cardiac etiology. Low concern for dissection or pulmonary embolism. Patient is asymptomatic currently. Accu-Chek in the field was greater than 400. DKA screening initiated. Based on the patient's clinical exam and history and risk factors, I have a much lower clinical concern for pulmonary embolism, acute aortic dissection, pneumothorax, pneumonia, cardiac tamponade HEART Score: 2 MACE Rate: < 1.7% Shared Decision Making: We had a conversation regarding risk stratification, MACE rate, and the risks, benefits, alternatives of disposition planning options. Disposition planning: Patient is refusing admission and serial troponins in the emergency room setting. He has capacity and informed decision making. ER COURSE: * Aspirin provided. Magnesium repleted via IV medication. * Glucose trended down, no indication for aggressive treatment at this time, no evidence of diabetic ketoacidosis * Chest pain remains absent. * Patient states that he would like to be discharged. He does not want serial enzymes or admission. Understands the risks including missed AL. He understands my recommendation for admission. CONSULTATION: None DISPOSITION PLAN: The patient does not have an identifiable emergent medical condition that warrants inpatient hospitalization at this time. The patient is deemed safe for discharge with outpatient follow-up. We discussed follow up with the patient's primary care doctor within 24 to 48 hours as needed. We also discussed return to the emergency room for worsening symptoms or worsening condition. Outpatient referral: None required Discharge Medications: None required Departure Diagnosis: Primary Impression: Chest pain Chest pain type: unspecified Qualified Codes: R07.9 - Chest pain, unspecified Additional Impressions: Anxiety reaction Hyperglycemia Hypomagnesemia Palpitations Condition: Stable DILEEP MALHOTRA MD Nov 07, 2018 13:38
[2018-11-07] MEDS ORDERED: SOD CHLORIDE 0.9% 1,000 ML IV ONE (14:00)
[2018-11-07 15:20] VITALS: BP 133/88; PULSE 97; RESP 16
[2018-11-07] MEDS ORDERED: INSULIN LISPRO 100 UNIT/ML VIAL SC ONE (15:30)
[2018-11-07] MEDS ORDERED: MAGNESIUM SULFATE 1 GM/D5W 100 ML IVPB ONE (15:30)
[2018-11-07] MEDS ORDERED: ASPI-817 PO (15:33)
[2018-11-07] MEDS ORDERED: ATOR40TA68 PO (15:34)
[2018-11-07] MEDS ORDERED: GLIM4TAB PO (15:34)
[2018-11-07] MEDS ORDERED: SITA100T11 PO (15:36)
[2018-11-07] MEDS ORDERED: METF500T24 PO (15:36)
[2018-11-07] MEDS ORDERED: PARO30TA68 PO (15:37)
[2018-11-07] MEDS ORDERED: ACCU-CHEK XX ONE (17:30)
== END 2018-11-07 15:57 | disposition home or self-care (01) ==
LOC: E/R 13:31
DX: R07.9 Chest pain, unspecified (principal); F41.9 Anxiety disorder, unspecified; E83.42 Hypomagnesemia; E11.65 Type 2 diabetes mellitus with hyperglycemia; Z79.82 Long term (current) use of aspirin; Z79.84 Long term (current) use of oral hypoglycemic drugs
CPT/HCPCS: 36415; 71045; 80048; 82803; 82962; 83735; 84100; 84484; 85025; 93005; 96374; 99285; J3475; J7030